=== PATIENT | female | born 1955 | race Caucasian/White ===

== ENCOUNTER 2017-09-27 07:56 | Day surgery (SDC) | payer BC ==
[~2017-09-27 07:56] MED LIST: Lactated Ringers 1,000 ML IV SCH; Sodium Chloride 0.9% 10 ML Syringe FLUSH PRN; ceFAZolin 1 GM in Premix Bag 1 BAG IV ONE
[2017-09-27] MEDS ORDERED: Propofol 200 MG/20 ML SDV IV ONE (07:57)
[2017-09-27] MEDS ORDERED: Midazolam 1 MG/ML 2 ML SDV IV ONE (07:57)
[2017-09-27] MEDS ORDERED: Bupivacaine 0.5% 30 ML SDV INJECT ONE ×4 (07:57→10:56)
[2017-09-27] MEDS ORDERED: Lidocaine 1% 30 ML SDV INJECT ONE ×3 (07:57→10:56)
[2017-09-27] MEDS ORDERED: fentaNYL 100 MCG/2 ML SDV IV ONE (07:57)
[2017-09-27] MEDS ORDERED: Bupivacaine 0.5% 30 ML SDV ONE (08:34)
[2017-09-27] MEDS ORDERED: Lidocaine 1% 30 ML SDV ONE (08:35)
[2017-09-27] MEDS ORDERED: Acetaminophen/oxyCODONE 325-5 MG Tab PO PRN (11:08)
--- NOTE | 2017-09-27 11:12 | PCM.OPNOTE ---
- General Post-Op/Procedure Note Date of Surgery/Procedure: 09/27/17 Operative Procedure(s): left foot first metatarsal osteotomy/bunionectomy, 5th digit fracture fragment malunion excision Pre Op Diagnosis: left foot painful bunion, 5th digit pain after fracture with callus Post-Op Diagnosis: julianna Anesthesia Technique: Local, MAC Primary Surgeon: Chelo Sommer Anesthesia Provider: Juancho Zapata EBL in mLs: 5 Complications: none Condition: Good Free Text/Narrative:: Pt tolerated procedure well and was transported to recovery with vascular status intact to left foot. TT 69 mins. Well padded compression dressing applied with cam boot.
--- NOTE | 2017-09-28 12:48 | OR ---
DATE: 09/27/2017 PREOPERATIVE DIAGNOSES: 1. Left foot painful bunion deformity. 2. Left foot fifth digit malunion, distal phalanx. POSTOPERATIVE DIAGNOSES: 1. Left foot painful bunion deformity. 2. Left foot fifth digit malunion, distal phalanx. PROCEDURES PERFORMED: 1. Left foot first metatarsal osteotomy/bunionectomy with hardware fixation. 2. Left foot fifth digit malunion fracture fragment excision. ANESTHESIA: Local MAC with preoperative local block of 10 mL 1:1 mixture of 1% lidocaine plain and 0.5% Marcaine plain. TOURNIQUET TIME: Sixty nine minutes, pneumatic ankle tourniquet . ESTIMATED BLOOD LOSS: Minimal. SPECIMEN: None. COMPLICATIONS: None. INDICATIONS: Isabella is a 61-year-old female who presents with a painful bunion on her left foot. She states the bunion started several years ago and is gradually worsening. It has recently become very painful for her where she is unable to tolerate it any longer. She does like to bowl, and this bothers her when she is trying to bowl or when she is doing other activities. She has tried wider shoes, activity modifications, and padding with no relief. She has also been dealing with a painful fifth toe on that same foot. States that she stubbed it into her dresser a couple of months ago and thinks she broke it, however, it is still painful, and now the nail starting to grow funny, and she is getting a painful callus on the top of that toe. X-rays of the left foot reveal medially deviated first metatarsal with intermetatarsal angle of 14 degrees, large subchondral cystic change to the first MTPJ at the dorsal aspect. No signs of fracture, however, the fifth digit appears to have an old healed fracture at the distal aspect of the toe that is malunited and curves dorsally towards the nail bed. The patient voiced good understanding of the proposed procedure and possible complications and elects to have surgery at this time. DESCRIPTION OF PROCEDURE: The patient was taken to the operating room lying in the supine position. After adequate anesthesia induction as described above, the left foot was prepped and draped in the usual sterile fashion. A pneumatic ankle tourniquet was inflated to 225 mmHg. Attention was then directed to the dorsal aspect of the first metatarsophalangeal joint, where an approximately 6 cm linear incision was made. Sharp and blunt dissection was performed down to the level of the joint capsule with care to gently retract all neurovascular bundles. An inverted L capsulotomy was made, and the capsule was reflected to expose the distal first metatarsal. A hypertrophic medial eminence was noted at this time and was resected with a sagittal saw. Blunt dissection was performed in the first interspace to the level of the fibular sesamoid and that was released from the adductor hallucis tendon. A sagittal saw was then used to make a chevron-type osteotomy with a long dorsal arm angulated in a fashion that would allow plantar displacement and maintenance of length upon lateral transposition of the capital fragment. The capital fragment was then transposed laterally approximately 6 mm and impacted to bring the hallux in a near rectus alignment. K-wires from the screw set were used as temporary fixation. Two partially-threaded Keven 2.0 screws were then placed across the osteotomy site. Temporary fixation was removed. The osteotomy site was noted to be stable with axial, valgus, and varus forces applied and with fluid range of motion of the first MTPJ. Fluoroscopy was used throughout this procedure to verify proper reduction of the bunion deformity and placement of screw fixation. The first metatarsal joint was inspected, and there was noted to be a cartilage defect at the plantar medial aspect. This was drilled with a 0.062 inch K-wire. A medial capsulorrhaphy was performed. The area was then irrigated with copious amounts of sterile saline. Capsular closure was completed with 2-0 Vicryl, and skin closure was completed with 4-0 nylon. The hallux was noted to be in a rectus alignment at this time. Attention was then directed to the left fifth digit where there was a callus on the dorsal distal aspect. A small stab incision was made at this area, and blunt dissection was made down to the level of the malunited fracture fragment at the distal tip. A rongeur was used to resect this, and a bone rasp was used to rasp any sharp edges. The area was then irrigated with copious amounts of sterile saline, and skin closure was completed with 4-0 nylon. The patient tolerated the procedure and anesthesia well and left the operating room for recovery with vital signs stable in good condition with vascular status intact to the left foot as noted by immediate hyperemia to all digits upon deflation of the ankle tourniquet. Total tourniquet time was 69 minutes. The patient was then discharged home when she met hospital discharge requirements. [facility] /[id number]
== END 2017-09-27 12:08 | disposition home or self-care (01) ==
LOC: DL.SDS 07:56
PROVIDERS: ATTEND Podiatrist
DX: M21.612 Bunion of left foot (principal); S92.912 Unspecified fracture of left toe(s); I10 Essential (primary) hypertension; Z79.899 Other long term (current) drug therapy; Z72.0 Tobacco use; X58.XXXA Exposure to other specified factors, initial encounter
CPT/HCPCS: 28296; C1713; J0690; J2250; J2704; J3010; J7050; J7120